=== PATIENT | female | born 1965 | race Caucasian/White ===

== ENCOUNTER → 2017-11-22 08:09 | Outpatient (CLI) | payer BC, SELFPAY ==
--- NOTE | 2017-11-22 08:12 | MM_ITS ---
MM Dig screening mamm BI w/CAD CAD Screening COMPARISON: Digital mammograms with CAD 11/07/2016 and 11/04/2015 INDICATION: There is no personal or family history of breast cancer. There is been previous biopsy right breast for benign disease. TECHNIQUE: Standard CC and MLO images were obtained. R2 CAD reviewed. FINDINGS: Diffuse heterogenic fibroglandular densities are seen throughout both breasts somewhat lessening the sensitivity of mammography. Again noted is a biopsy clip deep to the nipple right breast. There is a benign-appearing calcification left breast. There is no suspicious lesion and there are no suspicious microcalcifications. IMPRESSION: Fibrofatty parenchyma with no suspicious lesion seen BI-RADS Category: 2 Benign Finding(s) RECOMMENDED FOLLOW-UP: 1YR - 1 YEAR FOLLOW-UP (A letter has been sent to the patient regarding results of the study.)
== END ==
PROVIDERS: Family Provider Family Medicine; PCP Family Medicine; Visit Provider Obstetrics & Gynecology
DX: Z12.31 Encounter for screening mammogram for malignant neoplasm of breast (principal)
CPT/HCPCS: 77067

== ENCOUNTER → 2018-11-26 07:58 | Outpatient (CLI) | payer BC, SELFPAY ==
--- NOTE | 2018-11-26 07:59 | MM_ITS ---
PROCEDURE: MM DIG SCREENING MAMM BI W/CAD CLINICAL INDICATION: screening There is no personal or family history of breast cancer. There has been a previous biopsy right breast for benign disease. COMPARISON: [facility] DIG MAMM-DX UNI-RT from 11/04/2015 [facility] DIG MAMM-SCREEN SUSANNAH W/CAD from 11/07/2016 [facility] MM Dig screening mamm BI w/CAD from 11/22/2017 TECHNIQUE: Standard CC and MLO images were obtained. R2 CAD reviewed. FINDINGS: There is a diffusely dense and heterogenic parenchymal pattern somewhat lessening the sensitivity of mammography. There is a biopsy clip seen just deep to the nipple right breast. There is a stable nodular density deep within the left breast. There is no suspicious lesion on the no suspicious microcalcifications. IMPRESSION: Moderate diffuse breast density with no suspicious lesions seen BI-RAD Category: 2 Benign Finding(s) FOLLOW-UP: 1YR 1 Year Follow-up (A letter has been sent to the patient regarding results of the study.) Dictated by: Dr. Leonard Fox MD 11/27/2018 21:[address] Leonard Fox MD in [place] 11/27/2018 21:32
== END ==
PROVIDERS: PCP Family Medicine; Visit Provider Obstetrics & Gynecology
DX: Z12.31 Encounter for screening mammogram for malignant neoplasm of breast (principal)
CPT/HCPCS: 77067

== ENCOUNTER → 2020-02-12 07:49 | Outpatient (CLI) | payer BC, SELFPAY ==
--- NOTE | 2020-02-12 07:53 | MM_ITS ---
PROCEDURE: MM DIG SCREENING MAMM BI W/CAD Referring Doctor: Winnie Crews Patient Age:54Y CLINICAL INDICATION: SCREENING patient takes Premarin No new complaints Previous cyst aspiration/previous needle biopsy right breast-benign Family history: Noncontributory COMPARISON: MG [facility] DIG MAMM-SCREEN SUSANNAH W/CAD from 11/07/2016 MG [facility] MM Dig screening mamm BI w/CAD from 11/22/2017 MG MM DIG SCREENING MAMM BI W/CAD from 11/26/2018 TECHNIQUE: Standard CC and MLO images were obtained. R2 CAD reviewed. Bilateral digital breast tomosynthesis included. Axillary CC view FINDINGS: Heterogeneous moderately dense breast with breast tissue most extending from retroareolar region to the central and upper-outer quadrant both breast.. No suspicious calcifications either breast in left breast the cc shows a rather stellate area density best seen on CC view where it measures over 12-13 mm on CC view.. Although the initial cc view suggests some architectural distortion this is less pronounced on the tomosynthesis and axillary CC this view which is believe this resides in the superior breast on the MLO view near12 o'clock. Recommend left breast ultrasound and spot views to further evaluate. (Spot view shoes include MLO, cc and full 90 degree view left breast) Right breast: No new areas of significant concern The the is a metallic marker at superior right breast 12 o'clock position site of previous percutaneous biopsy. The IMPRESSION: Left breast : Area of density deep breast towards 12 o'clock position has slight stellate appearance,--. Recommend s additional mammography spot views, along with ultrasound left breast to further evaluate Right breast stable. Follow-up right breast 1 year BI-RAD Category: 0 Need Additional Imaging Evaluation FOLLOW-UP: IMM Immediate Follow-up Recommended (A letter has been sent to the patient regarding results of the study.) Dictated by: Jaleel Casey MD 02/13/2020 22:50 Jaleel Casey MD in [place] 02/13/2020 22:50
== END ==
PROVIDERS: PCP Family Medicine; Visit Provider Obstetrics & Gynecology Gynecology
DX: Z12.31 Encounter for screening mammogram for malignant neoplasm of breast (principal)
CPT/HCPCS: 77063; 77067

== ENCOUNTER → 2020-02-27 14:33 | Outpatient (CLI) | payer BC, SELFPAY ==
--- NOTE | 2020-02-27 14:37 | MM_ITS ---
PROCEDURE: MM DIG MAMM DX UNILAT LT CAD Digital Breast Tomosynthesis Included CLINICAL INDICATION: ABN MAMM OF LT BREAST COMPARISON: MG [facility] MM Dig screening mamm BI w/CAD from 11/22/2017 MG MM DIG SCREENING MAMM BI W/CAD from 11/26/2018 MG MM DIG SCREENING MAMM BI W/CAD from 02/12/2020 US US BREAST LT COMPLETE from 02/27/2020 TECHNIQUE: Compression views were obtained in the MLO and 90 degree lateral view and CC projection along with rolled CC views medial and lateral. FINDINGS: The possible area of architectural distortion is not definitely seen on the spot MLO view and 90 degree lateral view. It is still present on the spot CC view but appears less worrisome particularly on the rolled views. Ultrasound performed the same date showed no ultrasound abnormality in this area of the breast. IMPRESSION: Additional problem solving views lessening concern and suggest that this is simply an area of asymmetric glandular elements and recommend the patient continue with yearly screening mammography BI-RAD Category: 2 Benign Finding(s) FOLLOW-UP: 1YR 1 Year Follow-up (A letter has been sent to the patient regarding results of the study.) Dictated by: Dr. Leonard Fox MD 03/01/2020 11:08 Dr. Leonard Fox MD in [place] 03/01/2020 11:08
--- NOTE | 2020-02-27 14:38 | US_ITS ---
PROCEDURE: US BREAST LT COMPLETE CLINICAL INDICATION: ABN MAMM OF LT BREAST COMPARISON: US BL US BREAST-LT COMPLETE W/AXILLA from 10/23/2015 FINDINGS: Scanning throughout the breast shows rather homogeneous echogenicity. There is no evidence of suspicious solid lesion and no cystic lesions are seen. There are no findings to suggest architectural distortion. There are couple normal appearing nodes in the axilla. IMPRESSION: Unremarkable ultrasound left breast and recommend the patient continue with yearly screening mammography Dictated by: Dr. Leonard Fox MD 03/01/2020 11:12 Dr. Leonard Fox MD in [place] 03/01/2020 11:12
== END ==
PROVIDERS: PCP Family Medicine; Visit Provider Obstetrics & Gynecology Gynecology
DX: R92.8 Other abnormal and inconclusive findings on diagnostic imaging of breast (principal)
CPT/HCPCS: 76641; 77061; 77065; G0279

== ENCOUNTER → 2022-04-04 13:00 | Outpatient (CLI) | payer BC, SELFPAY ==
--- NOTE | 2022-04-04 13:03 | MM_ITS ---
PROCEDURE INFORMATION: Exam: MG Bilateral Screening 3D Mammography Exam date and time: 04/04/2022 1:10 PM Age: 56 years old Clinical indication: Screening examination TECHNIQUE: Imaging protocol: Bilateral Screening tomosynthesis and 2D mammography including computer-aided detection (CAD) when performed. COMPARISON: 1. MG MM DIG MAMM DX UNILAT LT CAD 02/27/2020 2:38 PM 2. MG MM DIG SCREENING MAMM BI W/CAD 02/12/2020 8:06 AM FINDINGS: MAMMOGRAPHY: Breast composition: The breasts are heterogeneously dense, which may obscure small masses. Mass: None. Architectural distortion: None. Calcifications: No suspicious calcifications. Asymmetric density: None. Skin thickening: None. Axillary adenopathy: None. IMPRESSION: No mammographic evidence of malignancy. Annual screening is recommended unless otherwise clinically indicated. ASSESSMENT: BI-RADS Category 1: Negative
== END ==
PROVIDERS: PCP Family Medicine; Visit Provider Obstetrics & Gynecology Gynecology
DX: Z12.31 Encounter for screening mammogram for malignant neoplasm of breast (principal)
CPT/HCPCS: 77063; 77067

== ENCOUNTER 2023-05-24 16:31 | Outpatient (CLI) | payer BC, SELFPAY ==
--- NOTE | 2023-05-24 16:37 | MM_ITS ---
PROCEDURE INFORMATION: Exam: MG Bilateral Screening 3D Mammography Exam date and time: 05/24/2023 4:27 PM Age: 57 years old Clinical indication: Screening examination. Her sister had breast cancer at age 63. History of benign right cyst aspiration and needle biopsy. TECHNIQUE: Imaging protocol: Bilateral Screening tomosynthesis and 2D mammography including computer-aided detection (CAD) when performed. COMPARISON: 1. MG MM DIG SCREENING MAMM BI W/CAD 04/04/2022 1:10 PM 2. MG MM DIG MAMM DX UNILAT LT CAD 02/27/2020 2:38 PM 3. MG MM DIG SCREENING MAMM BI W/CAD 02/12/2020 8:06 AM 4. MG MM DIG SCREENING MAMM BI W/CAD 11/26/2018 8:36 AM FINDINGS: MAMMOGRAPHY: Breast composition: The breasts are heterogeneously dense, which may obscure small masses. Mass: None. Architectural distortion: None. Calcifications: No suspicious calcifications. Asymmetric density: None. Skin thickening: None. Axillary adenopathy: None. IMPRESSION: No mammographic evidence of malignancy. Annual screening is recommended unless otherwise clinically indicated. ASSESSMENT: BI-RADS Category 1: Negative
== END 2023-05-24 23:59 ==
LOC: RAD 16:31
PROVIDERS: PCP Family Medicine; Visit Provider Obstetrics & Gynecology Gynecology
DX: Z12.31 Encounter for screening mammogram for malignant neoplasm of breast (principal)
CPT/HCPCS: 77063; 77067

== ENCOUNTER 2025-03-10 15:32 | Outpatient (CLI) | payer BC, SELFPAY ==
--- NOTE | 2025-03-10 15:34 | MM_ITS ---
PROCEDURE INFORMATION: Exam: MG Bilateral Screening 3D Mammography Exam date and time: 03/10/2025 3:43 PM Age: 59 years old Clinical indication: Screening examination TECHNIQUE: Imaging protocol: Bilateral Screening tomosynthesis and 2D mammography including computer-aided detection (CAD) when performed. COMPARISON: MG MM DIG SCREENING MAMM BI W/CAD 05/24/2023 4:27 PM FINDINGS: MAMMOGRAPHY: Breast composition: There are scattered areas of fibroglandular density. Mass: None. Architectural distortion: None. Calcifications: No suspicious calcifications. Asymmetric density: None. Skin thickening: None. Axillary adenopathy: None. IMPRESSION: No mammographic evidence of malignancy. Annual screening is recommended unless otherwise clinically indicated. ASSESSMENT: BI-RADS Category 1: Negative.
== END 2025-03-10 23:59 | disposition home or self-care (01) ==
LOC: RAD 15:32
PROVIDERS: PCP Family Medicine; Visit Provider Obstetrics & Gynecology Gynecology
DX: Z12.31 Encounter for screening mammogram for malignant neoplasm of breast (principal); R92.323 Mammographic fibroglandular density, bilateral breasts
CPT/HCPCS: 77063; 77067